=== PATIENT | female | born 1975 | race Caucasian/White ===

== ENCOUNTER → 2019-07-18 | Outpatient (CLI) | payer OTHER | END | disposition home or self-care (01) | LOC: LAB SHORT 17:10 → LAB EV 17:10 | DX: N39.0 Urinary tract infection, site not specified (principal) | CPT/HCPCS: 87086 ==

== ENCOUNTER 2021-01-07 16:00 | Emergency (ER) | payer OTHER ==
[~2021-01-07] VITALS: Ht 167.6 cm; Wt 104.3 kg
[2021-01-07 16:48] LABS: BASOPHILS ABSOLUTE AUTO 0.01 K/mm3 (0.00-0.23); BASOPHILS PERCENT AUTO 0 % (0-2); EOSINOPHILS PERCENT AUTO 0 % (0-6); Hematocrit 39.7 % (33.0-51.0); Hemoglobin 12.7 g/dL (11.5-16.0); IMMATURE GRAN ABSOLUTE AUTO 0.03 K/mm3 (0.00-0.10); IMMATURE GRAN PERCENT AUTO 1 % (0-1); LYMPHOCYTES ABSOLUTE AUTO 1.62 K/mm3 (0.84-5.20); LYMPHOCYTES PERCENT AUTO 25 % (21-46); MONOCYTES ABSOLUTE AUTO 0.42 K/mm3 (0.16-1.47); MONOCYTES PERCENT AUTO 7 % (4-13); Mean Corpuscular Volume 85 fL (80-100); Mean Platelet Volume 10.4 fL (9.1-12.4); NEUTROPHILS ABSOLUTE AUTO 4.42 K/mm3 (1.96-9.15); NEUTROPHILS PERCENT AUTO 68 % (41-73); Platelet Count 369 K/mm3 (150-400); RDW Coefficient Variation 12.7 % (11.7-14.2); RDW Standard Deviation 39.3 fL (35.1-46.3)
[2021-01-07 17:04] LABS: Alanine Aminotransfer (ALT/SGP 31 U/L (12-78); Albumin/Globulin Ratio 0.7 (0.8-1.8); Alk Phos 90 U/L (50-136); Anion Gap 4 mmol/L (6-16); Aspartate Aminotrans (AST/SGOT 41 U/L (12-37); Bilirubin, Total 0.5 mg/dL (0.1-1.0); Blood Urea Nitrogen 11 mg/dL (8-24); Bun/Creatinine Ratio 17.9 (12.0-20.0); CO2, Blood 26 mmol/L (21-32); Calcium, Blood 9.3 mg/dL (8.5-10.1); Chloride, Blood 109 mmol/L (98-108); Creatinine, Blood 0.61 mg/dL (0.40-1.00); Globulin, Blood 4.5 g/dL (2.2-4.0); Glomerular Filtration Rate >60 (60-); Glucose, Blood 106 mg/dL (70-99); Potassium, Blood 3.6 mmol/L (3.5-5.5); Sodium, Blood 139 mmol/L (136-145); Total Protein, Blood 7.5 g/dL (6.4-8.2); Troponin I <0.015 ng/mL (0.000-0.040)
== END 2021-01-07 18:37 | disposition home or self-care (01) ==
LOC: ER 16:00
PROVIDERS: Physician Assistant
DX: U07.1 COVID-19 (principal)
CPT/HCPCS: 36415; 71045; 80053; 84484; 85025; 93005; 93010; 99285-25

== ENCOUNTER 2023-07-19 06:16 | Day surgery (SDC) | payer OTHER ==
[~2023-07-19] VITALS: Ht 165.1 cm; Wt 114.6 kg
[2023-07-19] MEDS ORDERED: Lidocaine 1%-Epineph 1:100000 20 ML MDV ONE (07:00)
[2023-07-19] MEDS ORDERED: EPINEPhrine HCl 1 MG / ML 30ML Vial ONE (07:00)
[2023-07-19] MEDS ORDERED: Lactated Ringer's 1,000 ML IV ONE (07:06)
[2023-07-19] MEDS ORDERED: LOSARTAN POTASS25 M2 PO (07:07)
[2023-07-19] MEDS ORDERED: EZETIMIBE10 M6 PO (07:07)
[2023-07-19] MEDS ORDERED: RIZATRIPTAN10 MG SL (07:08)
[2023-07-19] MEDS ORDERED: propofoL 40 ML IV ONE (07:11)
[2023-07-19] MEDS ORDERED: FentaNYL Citrate 50 MCG/ML 2 ML Injection ONE ×3 (07:38→09:17)
[2023-07-19] MEDS ORDERED: Lidocaine 1%-Epineph 1:200000 30 ML SDV INJ ONE (08:00)
--- NOTE | 2023-07-19 08:01 | NUR ---
07/19/23 0801 Yamileth Mcarthur XYLOCAINE 1% 1:100,000 5MLS DILUTED W/ NACL 5MLS TO MAKE XYLOCAINE 1% 1:200,000 FOR INJECTION AT OPSITE BY DR TATE
[2023-07-19] MEDS ORDERED: Rocuronium Bromide 10 MG/ML 5ML Injection IV ONE (08:51)
[2023-07-19] MEDS ORDERED: Sugammadex Sodium 200 MG/2ML SDV (100 MG/ML) ONE (08:51)
[2023-07-19] MEDS ORDERED: Metoclopramide HCl 5MG / ML 2ML Vial ONE (08:51)
[2023-07-19] MEDS ORDERED: Dexamethasone Sod Phos 10 MG/ML 1ML VIAL ONE (08:51)
[2023-07-19] MEDS ORDERED: Ondansetron HCl 2 MG / ML 2ML Vial ONE (08:51)
[2023-07-19 09:30] VITALS: BP 136/105
--- NOTE | 2023-07-19 09:33 | NUR ---
07/19/23 0933 Jessica Ragsdale CHANGED DRESSING TO ADJUSTABLE MUSTACHE DRESSING TO MAKE PT MORE COMFORTABLE. DEMONSTRATED TO PT HOW TO ADJUST DRESSING TO FIT FACE.
== END 2023-07-19 09:57 | disposition home or self-care (01) ==
LOC: ORSCSDS 06:16
PROVIDERS: Otolaryngology
PROC: 09SM0ZZ Reposition Nasal Septum, Open Approach (ICD-10-PCS; principal; 2023-07-19 07:30)
DX: J34.2 Deviated nasal septum (principal); J34.3 Hypertrophy of nasal turbinates; I10 Essential (primary) hypertension; E66.01 Morbid (severe) obesity due to excess calories; Z68.41 Body mass index [BMI] 40.0-44.9, adult; Z79.899 Other long term (current) drug therapy
CPT/HCPCS: J0171; J1100; J2405; J2704; J2765; J3010